=== PATIENT | female | born 1975 | race Caucasian/White ===

== ENCOUNTER 2019-08-31 09:26 | Emergency (ER) | payer BC ==
[~2019-08-31] VITALS: Ht 160 cm; Wt 73.5 kg
[2019-08-31] MEDS ORDERED: SPIRIVA18 MCG INH (09:36)
[2019-08-31] MEDS ORDERED: ALBUTEROL2.5 MG/3 M INH (09:36)
--- NOTE | 2019-08-31 09:41 | NUR ---
ED Nurse Note: Patient walked in from home due to possible dislocated left shoulder and left side of the neck pain 01/14 on Saturday. Denies head injury. ERMD at bedside.
[2019-08-31 09:44] VITALS: BP 128/75
--- NOTE | 2019-08-31 09:50 | Emergency Room Report ---
History of Present Illness General Chief Complaint: Shoulder Injury Source: Patient Present Illness HPI Disclaimer: Please note that this report is being documented using [employer] technology. This can lead to erroneous entry secondary to incorrect interpretation by the dictating instrument. HPI: 44-year-old female presents for evaluation of left shoulder and neck pain. 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 She was struck and fell backwards falling onto her upper shoulders and her left shoulders. She states her left shoulder was dislocated and her reduced it immediately after the injury. She complains of worsening pain in the left upper extremity as well as intermittent numbness and tingling in the left arm. Cannot abduct past 15 degrees. States she has dislocated many times and is always been reduced. She also has a history of cervical disc disease and radiculopathy. She is complaining of significant pain over the left shoulder and difficulty moving her neck due to pain. She denies any head injury or loss of consciousness. PMH: Cervical disc disease PSH: Reviewed Allergies: IV contrast media Allergies: Uncoded Allergies: CONTRAST (Allergy, Unknown, 08/31/19) Patient History Last Menstrual Period: currently Now: No : 1 Para: 0 Nursing Documentation-PMH Hx Asthma: Yes Review of Systems All Other Systems: negative except mentioned in HPI Physical Exam Vital Signs Date Time Temp Pulse Resp B/P (MAP) Pulse Ox O2 Delivery O2 Flow Rate FiO2 08/31/19 09:29 98.4 76 19 128/75 (92) 95 Room Air General: Awake and alert, no acute distress HEENT: NC/AT. EOMI. Resp: Normal work of breathing Skin: Intact. No abrasions, laceration or rash over the exposed skin MSK: Normal tone and bulk. Moving all extremities. No obvious deformity. Shoulders appear in anatomic position. No palpable deformity or step-off. She has tenderness over the anterior portion of the shoulder joint and difficulty with abduction past 15 degrees. Able to internally externally rotate. Neuro: Awake and alert. Mentating appropriately. Sensation is intact over the dermatomes of left upper extremity. Sensation is intact over the deltoid Back: There is some tenderness in the lower cervical and upper thoracic spine without step-off or deformity. There is significant paraspinal tenderness in the cervical and upper thoracic region as well as tenderness across the entire chest PCS with increased spasticity on the left side. Medical Decision Making Diagnostic Impression: Primary Impression: Acute shoulder pain due to trauma Additional Impressions: Cervical strain Back spasm ER Course Is a 44-year-old female presenting for evaluation of left shoulder and cervical spine pain after an injury 3 days ago. Differential includes was not limited to whiplash injury, muscle spasm, muscle sprain, shoulder dislocation, upper extremity fracture, radiculopathy, herniated disc to name a few. Given the patient's history and recent numbness and tingling of the extremity will obtain a CT scan of the cervical spine to evaluate for acute fracture. She is adamant that she did not hit her head but just her upper back during her fall. We will also obtain an x-ray of the left shoulder to evaluate for fracture and dislocation. Other X-Ray Diagnostic Results Other X-Ray Diagnostic Results : X-Ray ordered: Left shoulder # of Views/Limited Vs Complete: 3 View Indication: Pain Interpretation: no dislocation, no soft tissue swelling, no fractures Impression: No acute disease Electronically Signed by: Electronically signed by Dr. Andres Meier Reevaluation Time: 11:17 Last Vital Signs Date Time Temp Pulse Resp B/P (MAP) Pulse Ox O2 Delivery O2 Flow Rate FiO2 08/31/19 09:29 98.4 76 19 128/75 (92) 95 Room Air Reevaluation Impression No evidence of fracture or dislocation on shoulder x-rays. CT scan shows multilevel disc disease but no acute trauma. Patient was placed in a shoulder immobilizer. She will follow-up with orthopedic surgery and her PMD. Prescribed symptomatic medications for her muscle spasm. Disposition: HOME, SELF-CARE Condition: Stable Scripts Lidocaine Patch* (Lidoderm Patch*) 1 Each Adh..patch 1 PATCH TOPIC DAILY, #10 PATCH 0 Refills Patch(es) may remain in place for up to 12 hours in any 24-hour period. Prov: Andres Meier MD 08/31/19 Methocarbamol* (ROBAXIN-750*) 750 Mg Tablet 750 MG PO QID, #28 TAB 0 Refills Prov: Andres Meier MD 08/31/19 Ibuprofen* (MOTRIN*) 600 Mg Tablet 600 MG ORAL Q8H PRN for For Pain, #30 TAB 0 Refills Prov: Andres Meier MD 08/31/19 Andres Meier MD Aug 31, 2019 09:50
--- NOTE | 2019-08-31 09:53 | NUR ---
ED Nurse Note: urine specimen sent down to lab.
--- NOTE | 2019-08-31 09:55 | NUR ---
ED Nurse Note: xray at bedside
[2019-08-31] MEDS ORDERED: Methocarbamol 750mg tab ORAL ONE (10:15)
[2019-08-31] MEDS ORDERED: Ketorolac 30mg Inj IM ONE (10:15)
--- NOTE | 2019-08-31 10:27 | NUR ---
ED Nurse Note: Patient taken to CT.
--- NOTE | 2019-08-31 10:37 | NUR ---
ED Nurse Note: Pt back from CT.
--- NOTE | 2019-08-31 10:54 | Diagnostic Imaging Report ---
Indication: Left shoulder pain Technique: 3 views of the left shoulder Comparison: none Findings: No acute fractures. No dislocations. The joint spaces are preserved Impression: Negative
--- NOTE | 2019-08-31 11:07 | Diagnostic Imaging Report ---
Indication: Left shoulder and neck pain Technique: Spiral acquisitions obtained through the cervical spine. No IV contrast utilized. Multiplanar reconstructions were generated. Total dose length product 170 mGycm. CTDIvol(s) 6. mGy. Dose reduction achieved using automated exposure control. Comparison: none Findings: There is slight anterior offset of C3 on C4. There is slight loss of the normal cervical lordosis. Otherwise normal bony alignment. The vertebral body heights are preserved. No acute fractures. No dislocations. At C3-4, there is degenerative disc narrowing. There is severe bilateral neural foraminal stenosis. Posterior osteophytes and short pedicles result in borderline narrowing of the spinal canal. At C4-5, there is severe bilateral degenerative neural foraminal narrowing. Posterior left paracentral osteophytes may impinge upon the left lateral recess. There is mild degenerative disc narrowing. At C5-6, there is moderate degenerative disc narrowing. Central posterior osteophytes and short pedicles result in moderate narrowing of the spinal canal. There is severe bilateral neural foraminal stenosis. At remaining levels, no significant disc bulge or protrusion, spinal stenosis, or neural foraminal stenosis. The included extraspinal soft tissues are unremarkable. Impression: No acute bony trauma Multilevel degenerative changes, as detailed on a level by level basis above The CT scanner at [facility] is accredited by the [employer] and the scans are performed using protocols designed to limit radiation exposure to as low as reasonably achievable to attain images of sufficient resolution adequate for diagnostic evaluation.
--- NOTE | 2019-08-31 11:15 | NUR ---
ED Nurse Note: Left shoulder immobilizer applied by auto electrical technician.
[2019-08-31] MEDS ORDERED: LIDODERM700 M1 TOPIC (11:16)
[2019-08-31] MEDS ORDERED: ROBAXIN-750750 MG PO (11:16)
[2019-08-31] MEDS ORDERED: IBUPROFEN600 MG ORAL (11:16)
--- NOTE | 2019-08-31 11:25 | NUR ---
ER DISCHARGE NOTE: Patient is cleared to be discharged per ERMD, pt is aox4, on room air, with stable vital signs. pt was given dc and prescription instructions, pt was able to verbalize understanding, pt id band removed. pt is able to ambulate with steady gait. pt took all belongings.
[2019-08-31 11:26] VITALS: BP 123/72
== END 2019-08-31 11:25 | disposition home or self-care (01) ==
LOC: EMR 10:04
DX: M25.512 Pain in left shoulder (principal); S16.1XXA Strain of muscle, fascia and tendon at neck level, initial encounter; M62.830 Muscle spasm of back; Z91.041 Radiographic dye allergy status; M50.30 Other cervical disc degeneration, unspecified cervical region; W50.0XXA Accidental hit or strike by another person, initial encounter; Y92.9 Unspecified place or not applicable
CPT/HCPCS: 72125; 73030; 96372; 99284; J1885